=== PATIENT | male | born 1950 | race Caucasian/White ===

== ENCOUNTER → 2020-08-27 | Outpatient (CLI) | payer OTHER ==
[~2020-08-27] MED LIST: AMITRIPTYLINE H25 M3 PO; ASPIRIN325 PO; CENTRUM SILVER1 EAC5 PO; DIAZEPAM 10 MG10 M1 PO; FISH OIL 1,2001 EAC8 PO; METHADONE10 MG/1 M2 PO; [UNRECOGNIZED DRUG - OTHER] PO
== END ==
LOC: LAB 07:33
PROVIDERS: ATTEND Specialist
DX: Z01.812 Encounter for preprocedural laboratory examination (principal); Z20.822 Contact with and (suspected) exposure to COVID-19

== ENCOUNTER → 2020-09-01 | Outpatient (CLI) | payer OTHER ==
[~2020-09-01] VITALS: Ht 165.1 cm; Wt 74.8 kg
--- NOTE | 2020-09-01 15:20 | P ---
[facility] [place] [address] PROCEDURE REPORT Name: MARK NEAL Room #: JENNIFER DUMONT Hernesto#: [id number] Admission: 09/01/20 Attend Phys: Jamshid Taylor Discharge: Date of : 52 Report #: [id number] THIS REPORT FOR: cc: Kailash Milan MD, Steven A. MD McElhinney, Christian C. MD ~ DATE OF SERVICE: 09/01/2020 PROCEDURE PERFORMED: Colonoscopy. HISTORY OF PRESENT ILLNESS: The patient is a 70-year-old male who presents today for screening colonoscopy. He states he has never had a colonoscopy in the past. He denies any symptoms. No family history of colon cancer. DESCRIPTION OF PROCEDURE: The risks and benefits of the procedure were explained to the patient, those risks including but not limited to bleeding, perforation and the risk of sedation. He understood these risks and gave informed consent. Sedation was given using propofol per anesthesia. Next, a digital rectal exam was initially performed, which was normal. Next, using a standard Olympus colonoscope, the scope was placed in the patient's anus and advanced under direct vision to the cecum. The overall prep was good. Cecum and ileocecal valve were normal in appearance. Ascending, transverse, descending and sigmoid colon were all normal. The rectal mucosa was normal. No evidence of abnormalities on retroflexion. The scope was then withdrawn and the procedure terminated. The patient tolerated the procedure well. IMPRESSION: Normal colonoscopy. RECOMMENDATIONS: Repeat colonoscopy in 10 years. Thank you for allowing me to participate in his care. <ELECTRONICALLY SIGNED> By: Jamshid Hamilton MD 09/01/20 1520 [id number] [id number] Jamshid Hamilton MD /nt
== END | disposition home or self-care (01) ==
LOC: GI 08:15
PROVIDERS: ATTEND Specialist
DX: Z12.11 Encounter for screening for malignant neoplasm of colon (principal); I12.9 Hypertensive chronic kidney disease with stage 1 through stage 4 chronic kidney disease, or unspecified chronic kidney disease; F17.210 Nicotine dependence, cigarettes, uncomplicated; Z98.890 Other specified postprocedural states; Z79.899 Other long term (current) drug therapy; Z87.442 Personal history of urinary calculi; Z85.47 Personal history of malignant neoplasm of testis; Z88.8 Allergy status to other drugs, medicaments and biological substances
CPT/HCPCS: 62110; 62900